=== PATIENT | female | born 1990 | race Caucasian/White ===

== ENCOUNTER 2020-12-14 15:33 | Emergency (ER) | payer BC, SELFPAY ==
[2020-12-14 15:39] VITALS: BP 117/77; PULSE 56; RESP 14; TEMP 36.3; O2SAT 100
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
== END 2020-12-14 18:02 | disposition home or self-care (01) ==
PROVIDERS: Emergency Provider Physician Assistant
DX: S42.022A Displaced fracture of shaft of left clavicle, initial encounter for closed fracture (principal); V19.9XXA Pedal cyclist (driver) (passenger) injured in unspecified traffic accident, initial encounter
CPT/HCPCS: 81025; 99283; 73000